=== PATIENT | male | born 1940 | race Caucasian/White ===

== ENCOUNTER 2019-11-05 14:18 | Emergency (ER) | payer MEDICARE | END 2019-11-05 16:48 | disposition home or self-care (01) | LOC: EDH 14:18 | DX: S81.811D Laceration without foreign body, right lower leg, subsequent encounter (principal); I10 Essential (primary) hypertension; E11.9 Type 2 diabetes mellitus without complications; E78.5 Hyperlipidemia, unspecified; Z95.0 Presence of cardiac pacemaker; Z98.890 Other specified postprocedural states; X58.XXXD Exposure to other specified factors, subsequent encounter | CPT/HCPCS: 99281 ==